=== PATIENT | female | born 1960 | race African-American/Black ===

== ENCOUNTER 2020-06-19 09:18 | Emergency (ER) | payer SELFPAY ==
[~2020-06-19] VITALS: Ht 157.5 cm; Wt 72.0 kg
[2020-06-19] MEDS ORDERED: ASPIRIN 81MG TABLET PO ONE (10:30)
[2020-06-19 10:48] LABS: BASOPHILS % 0.7 % (0.0-2.0); EOSINOPHILS % 2.2 % (0.0-5.0); HEMATOCRIT. 32.5 % (36.0-48.0); HEMOGLOBIN. 11.4 g/dL (12.0-16.0); LYMPHOCYTES % 24.7 % (20.0-50.0); MEAN CORPUSCULAR VOLUME 91.1 fL (81.0-99.0); MEAN PLATELET VOLUME 9.2 fl (7.4-10.4); NEUTROPHILS % 64.4 % (40.0-76.0); PLATELET 256 x1000/uL (130-400); RED BLOOD CELL COUNT 3.56 mill/uL (4.2-5.4); RED CELL DISTRIBUTION WIDTH 13.8 % (11.6-14.6)
[2020-06-19 10:54] LABS: CHLORIDE 98 mEq/L (98-107)
[2020-06-19 11:30] VITALS: BP 111/80
== END 2020-06-19 13:18 | disposition home or self-care (01) ==
LOC: ER 09:18
DX: R42 Dizziness and giddiness (principal); R11.10 Vomiting, unspecified; R94.31 Abnormal electrocardiogram [ECG] [EKG]; E78.00 Pure hypercholesterolemia, unspecified; I10 Essential (primary) hypertension
CPT/HCPCS: 36415; 71045; 80053; 83735; 83880; 84484; 85025; 93005; 99285; Z7610